=== PATIENT | male | born 1970 | race Caucasian/White ===

== ENCOUNTER 2017-08-23 06:26 | Day surgery (SDC) | payer OTHER ==
[2017-08-23] MEDS ORDERED: Povidone-Iodine 10% Soln 118.25 ML Bottle ONE (06:43)
[2017-08-23] MEDS ORDERED: Bupivacaine 0.5%/EPINEPHrine 1:200,000 50 ML MDV ONE (06:43)
[2017-08-23] MEDS ORDERED: Lactated Ringers 1,000 ML IV SCH (07:00)
[2017-08-23] MEDS ORDERED: fentaNYL 250 MCG/5 ML SDV ONE (07:03)
[2017-08-23] MEDS ORDERED: Ondansetron 4 MG/2 ML SDV ONE (07:03)
[2017-08-23] MEDS ORDERED: Succinylcholine/Normal Saline 200 MG/10 ML Syringe ONE (07:03)
[2017-08-23] MEDS ORDERED: Propofol 200 MG/20 ML SDV ONE (07:03)
[2017-08-23] MEDS ORDERED: Rocuronium 50 MG/5 ML Vial ONE (07:03)
[2017-08-23] MEDS ORDERED: Dexamethasone 4 MG/ML SDV ONE (07:03)
[2017-08-23] MEDS ORDERED: Neostigmine Methylsulfate 1 MG/ML 5 ML Syringe ONE (07:03)
[2017-08-23] MEDS ORDERED: Gentamicin 40 MG/ML 2 ML Vial ONE (07:19)
[2017-08-23] MEDS ORDERED: ceFAZolin 2 GM in Premix Bag 1 BAG IV ONE (07:45)
[2017-08-23] MEDS ORDERED: Acetaminophen/HYDROcodone 325-5 MG Tab PO PRN (09:07)
[2017-08-23 09:27] VITALS: BP 96/58
--- NOTE | 2017-08-23 15:44 | OR ---
DATE OF PROCEDURE: 08/23/2017 PREOPERATIVE DIAGNOSIS: Left knee medial meniscus tear. POSTOPERATIVE DIAGNOSES: 1. Left knee medial anteroposterior meniscus tear. 2. Lateral meniscus tear posteriorly. 3. Chondromalacia of patella. PROCEDURES: 1. Patellar chondroplasty. 2. Partial mediolateral meniscectomy. TALENT DEVELOPMENT SPECIALIST: Anjana Mera NP. Physician regional administrative assistant, Anjana Mera NP, played an essential role in assisting in this case, helping to position the patient, retract structures as needed, as well as suturing and cutting sutures as indicated. Her presence improved patient's safety and decreased operative time. ANESTHESIA: General endotracheal intubation. FLUID: Lactated Ringer solution. ESTIMATED BLOOD LOSS: 0. COMPLICATIONS: None. SPECIMEN: None. DISCHARGE DISPOSITION: Stable to PACU. INDICATIONS FOR THE PROCEDURE: The patient was seen preoperatively in the clinic. He had been suffering with left knee mechanical instability and pain since last March. He had failed cortisone injections and nonoperative treatment. Preoperative imaging confirmed the preoperative diagnosis. Risks and benefits of procedure were explained to the patient. Informed consent was obtained. DETAILS OF PROCEDURE: The patient was seen preoperatively by myself and the anesthesia staff in the preop holding area where the operative site was marked. He was brought to the operative suite by the anesthesia staff where general anesthesia was administered. A well- padded tourniquet was placed on the left thigh. The right lower extremity was placed into a stirrup and the left lower extremity was placed into a leg archibald. The left lower extremity was then prepped and draped in a sterile manner. Time-out was called identifying the correct patient, correct procedure, correct site, and antibiotics had been in with an appropriate period of time. The left lower extremity was exsanguinated. Tourniquet was raised to 250 mmHg for 30 minutes and let down after closure. A lateral portal was then made 1st. I found chondromalacia of the patella. I then made my medial portal. I was able to see that there was anterior partial meniscus tear as well as a posterior meniscus tear. I then used the shaver and ablation unit to debride the meniscus tear. I then removed part of the infrapatellar fat pad for visualization and then saw that there was tear of the posterolateral meniscus which we did again, debrided with the shaver and ablation unit and I had used the ablation unit then to perform a chondroplasty of the patella. I then removed my instruments from the knee. We then closed with 3-0 nylon followed by sterile dressing. The patient was then transferred to his hospital bed and brought to the PACU in stable condition. Jose Miguel aRpp DO /[id number]
== END 2017-08-23 10:15 | disposition home or self-care (01) ==
LOC: JP.SDS 06:26
PROVIDERS: ATTEND Orthopaedic Surgery
DX: S83.242A Other tear of medial meniscus, current injury, left knee, initial encounter (principal); S83.282A Other tear of lateral meniscus, current injury, left knee, initial encounter; M22.41 Chondromalacia patellae, right knee; K21.9 Gastro-esophageal reflux disease without esophagitis; G89.29 Other chronic pain; F17.210 Nicotine dependence, cigarettes, uncomplicated; Z98.890 Other specified postprocedural states; Z79.899 Other long term (current) drug therapy
CPT/HCPCS: 29880; A9270; J0690; J1100; J1580; J2405; J2704; J3010; J7120

== ENCOUNTER 2018-09-19 07:23 | Day surgery (SDC) | payer OTHER ==
[~2018-09-19 07:23] MED LIST: Midazolam 1 MG/ML 2 ML SDV ONE; Propofol 200 MG/20 ML SDV ONE; fentaNYL 100 MCG/2 ML SDV ONE
[2018-09-19] MEDS ORDERED: Sodium Chloride 0.9% 1,000 ML IV SCH (08:00)
[2018-09-19] MEDS ORDERED: Lactated Ringers 1,000 ML IV SCH (08:30)
[2018-09-19] MEDS ORDERED: Propofol 200 MG/20 ML SDV ONE (09:08)
[2018-09-19 10:02] VITALS: BP 102/72
--- NOTE | 2018-09-20 11:13 | OR ---
DATE OF PROCEDURE: 09/19/2018 PREOPERATIVE DIAGNOSIS: Colon cancer screening. POSTOPERATIVE DIAGNOSIS: Sigmoid colitis, possible transverse colon polyp. PROCEDURE: Colonoscopy to the cecum with biopsy of sigmoid colon and biopsy resection of possible transverse colon polyp. ANESTHESIA: IV anesthesia with monitored anesthesia care. SURGEON: Peter Borrego MD INDICATION: This 48-year-old white male was referred for a colonoscopy for colon cancer screening. He has had a colonoscopic exam in the past, but he says more than 10 years ago. I counseled him for the procedure, including risks and alternatives, and he gave his informed consent to proceed. DESCRIPTION OF PROCEDURE: The patient was placed in the left lateral decubitus position. IV anesthesia was administered by the Anesthesia Service. Time-out was held. A rectal exam was performed, which was unremarkable. The flexible video Olympus colonoscope was introduced through his anus, up his rectum, and out his colon all the way to the cecum. En route, in the sigmoid colon, we saw an area of inflammation suggestive of colitis. We biopsied this area. Also, en route in the transverse colon, we saw what may have been a very small polyp. We removed this with a single bite of the biopsy forceps. Once the cecum was reached, the scope was slowly withdrawn examining the mucosa throughout. No additional mucosal abnormalities were noted. The scope was retroflexed in the rectum with the distal rectum appearing unremarkable. The scope was straightened and removed. He tolerated the procedure well. Peter Borrego MD /[id number]
== END 2018-09-19 10:18 | disposition home or self-care (01) ==
LOC: JP.SDS 07:23
PROVIDERS: ATTEND Surgery
DX: Z12.11 Encounter for screening for malignant neoplasm of colon (principal); D12.3 Benign neoplasm of transverse colon; K52.9 Noninfective gastroenteritis and colitis, unspecified
CPT/HCPCS: 45380; J2250; J2704; J3010; J7120

== ENCOUNTER 2018-12-01 10:44 | Emergency (ER) | payer OTHER ==
[2018-12-01] MEDS ORDERED: Nitroglycerin 0.4 MG Tab.SL SL PRN (10:54)
[2018-12-01] MEDS ORDERED: Sodium Chloride 0.9% 10 ML Syringe FLUSH PRN (10:54)
[2018-12-01] MEDS ORDERED: Morphine 4 MG/ML Syringe IVPUSH PRN (10:54)
[2018-12-01] MEDS ORDERED: Aspirin 81 MG Tab.Chew PO ONE (10:54)
[2018-12-01] MEDS ORDERED: Ondansetron 4 MG/2 ML SDV IVPUSH ONE (10:58)
--- NOTE | 2018-12-01 10:59 | EDM.PDOC ---
ED HPI GENERAL MEDICAL PROBLEM - General Chief Complaint: Chest Pain Stated Complaint: CHEST PAIN Time Seen by Provider: 12/01/18 10:54 Source of Information: Reports: Patient, RN Notes Reviewed History Limitations: Reports: No Limitations - History of Present Illness INITIAL COMMENTS - FREE TEXT/NARRATIVE: 48-year-old gentleman presents emergency department today complaint of chest pain, he states the chest pain started about 2 hours prior was diaphoretic was nauseated and felt short of breath rates the pain 2 out of 10 at this time doesn 't past medical history of tobacco dependence and hypertension there is no cardiac history in his family chest Pain Score (Numeric/FACES): 2 - Related Data Allergies Allergy/AdvReac Type Severity Reaction Status Date / Time nitroglycerin Allergy Other Verified 12/01/18 10:58 Home Meds: Home Meds Omeprazole 20 mg PO DAILY 01/29/16 [History] Lisinopril 20 mg PO DAILY 09/19/18 [History] Past Medical History Cardiovascular History: Reports: High Cholesterol, Hypertension Gastrointestinal History: Reports: GERD Musculoskeletal History: Reports: Other (See Below) Other Musculoskeletal History: left knee pain Neurological History: Reports: Concussion Endocrine/Metabolic History: Reports: Obesity/BMI 30+ Dermatologic History: Reports: Psoriasis - Infectious Disease History Infectious Disease History: Reports: Chicken Pox, Measles - Past Surgical History Head Surgeries/Procedures: Reports: None Cardiovascular Surgical History: Reports: None GI Surgical History: Reports: Colonoscopy, EGD Endocrine Surgical History: Reports: None Neurological Surgical History: Reports: None Musculoskeletal Surgical History: Reports: Arthroscopic Knee Dermatological Surgical History: Reports: Skin Biopsy Social & Family History - Family History Family Medical History: Noncontributory - Tobacco Use Smoking Status *Q: Current Every Day Smoker - Caffeine Use Caffeine Use: Reports: Coffee ED ROS GENERAL - Review of Systems Review Of Systems: See Below Constitutional: Reports: Diaphoresis HEENT: Reports: No Symptoms Respiratory: Reports: Shortness of Breath Cardiovascular: Reports: Chest Pain, Dyspnea on Exertion GI/Abdominal: Reports: Nausea Musculoskeletal: Reports: No Symptoms Skin: Reports: No Symptoms Neurological: Reports: No Symptoms ED EXAM, GENERAL - Physical Exam Exam: See Below Exam Limited By: No Limitations General Appearance: Alert, Mild Distress Head: Atraumatic, Normocephalic Neck: Normal Inspection, Supple, Non-Tender, Full Range of Motion Respiratory/Chest: No Respiratory Distress, Lungs Clear, Normal Breath Sounds, No Accessory Muscle Use, Chest Non-Tender Cardiovascular: Regular Rate, Rhythm, No Murmur GI/Abdominal: Soft, Non-Tender Skin Exam: Rash Course - Vital Signs Last Recorded V/S: Last Vital Signs Temp 98.3 F 12/01/18 10:56 Pulse 62 12/01/18 11:46 Resp 16 12/01/18 11:46 BP 132/85 12/01/18 11:46 Pulse Ox 95 12/01/18 11:46 - Orders/Labs/Meds Orders: Active Orders 24 hr Category Date Time Status Cardiac Monitoring [RC] .As Directed Care 12/01/18 10:55 Active Communication Order [RC] Per Unit Routine Care 12/01/18 13:33 Ordered EKG Documentation Completion [RC] ASDIRECTED Care 12/01/18 10:56 Active Peripheral IV Care [RC] . DIRECTED Care 12/01/18 10:56 Active Heparin Sodium/D5W [Heparin 25,000 Units in D5W 500 ML] Med 12/01/18 13:45 Ordered 25,000 units in 500 ml IV TITRATE Morphine Med 12/01/18 10:54 Active 4 mg IVPUSH Q10M PRN Nitroglycerin [Nitrostat] Med 12/01/18 10:54 Active 0.4 mg SL Q5M PRN Nitroglycerin/D5W [Nitroglycerin 25 MG/D5W 250 ML] Med 12/01/18 12:15 Active 25 mg in 250 ml IV TITRATE Sodium Chloride 0.9% [Saline Flush] Med 12/01/18 10:54 Active 10 ml FLUSH ASDIRECTED PRN Peripheral IV Insertion Adult [OM.PC] Stat Oth 12/01/18 10:54 Ordered Saline Lock Insert [OM.PC] Stat Oth 12/01/18 10:54 Ordered EKG 12 Lead [EK] Stat Ther 12/01/18 10:55 Ordered Medication Orders Nitroglycerin/Dextrose (Nitroglycerin 25 Mg/D5w 250 Ml) 25 mg in 250 mls @ 6 mls/hr IV TITRATE RAJAN; Protocol Last Admin: 12/01/18 12:18 Dose: 10 mcg/min, 6 mls/hr Heparin Sodium/Dextrose (Heparin 25,000 Units In D5w 500 Ml) 25,000 units in 500 mls @ 21.772 mls/hr IV TITRATE RAJAN; Protocol Last Admin: 12/01/18 13:51 Dose: 12 units/kg/hr, 21.772 mls/hr Morphine Sulfate (Morphine) 4 mg IVPUSH Q10M PRN PRN Reason: Chest Pain Stop: 12/02/18 10:55 Last Admin: 12/01/18 11:04 Dose: 4 mg Nitroglycerin (Nitrostat) 0.4 mg SL Q5M PRN PRN Reason: Chest Pain Stop: 12/02/18 10:55 Sodium Chloride (Saline Flush) 10 ml FLUSH ASDIRECTED PRN PRN Reason: Keep Vein Open Labs: Laboratory Tests 12/01/18 12/01/18 12/01/18 Range/Units 10:59 10:59 13:00 WBC 10.0 (4.5-11.0) K/uL RBC 4.81 (4.30-5.90) M/uL Hgb 15.2 H (12.0-15.0) g/dL Hct 43.9 (40.0-54.0) % MCV 91 (80-98) fL MCH 32 H (27-31) pg MCHC 35 (32-36) % Plt Count 238 (150-400) K/uL Neut % (Auto) 48 (36-66) % Lymph % (Auto) 36 (24-44) % Delta % (Auto) 12 H (2-6) % Eos % (Auto) 2 (2-4) % Baso % (Auto) 1 (0-1) % Sodium 139 L (140-148) mmol/L Potassium 4.5 (3.6-5.2) mmol/L Chloride 103 (100-108) mmol/L Carbon Dioxide 28 (21-32) mmol/L Anion Gap 12.5 (5.0-14.0) mmol/L BUN 13 (7-18) mg/dL Creatinine 1.0 (0.8-1.3) mg/dL Est Cr Clr Drug Dosing 85.50 mL/min Estimated GFR (MDRD) > 60 (>60) Glucose 134 H (74-106) mg/dL Calcium 9.0 (8.5-10.1) mg/dL Total Bilirubin 0.3 (0.2-1.0) mg/dL AST 18 (15-37) U/L ALT 29 (12-78) U/L Alkaline Phosphatase 70 (46-116) U/L CK-MB (CK-2) 2.2 (0-3.6) mg/mL Troponin I 0.032 0.238 H* (0.000-0.056) ng/mL Total Protein 6.8 (6.4-8.2) g/dL Albumin 3.8 (3.4-5.0) g/dL Globulin 3.0 (2.3-3.5) g/dL Albumin/Globulin Ratio 1.3 (1.2-2.2) Meds: Medications Generic Name Dose Route Start Last Admin Trade Name Freq PRN Reason Stop Dose Admin Nitroglycerin/Dextrose 25 mg in 250 mls @ 6 mls/hr 12/01/18 12:15 12/01/18 12 :18 Nitroglycerin 25 Mg/D5w 250 Ml IV 10 mcg/min TITRATE RAJAN 6 mls/hr Administration Protocol 10 MCG/MIN Heparin Sodium/Dextrose 25,000 units in 500 mls @ 21.772 mls/hr 12/01/18 13: 45 12/01/18 13:51 Heparin 25,000 Units In D5w 500 Ml IV 12 units/kg/hr TITRATE RAJAN 21.772 mls/hr Administration Protocol 12 UNITS/KG/HR Morphine Sulfate 4 mg 12/01/18 10:54 12/01/18 11:04 Morphine IVPUSH 12/02/18 10:55 4 mg Q10M PRN Administration Chest Pain Nitroglycerin 0.4 mg 12/01/18 10:54 Nitrostat SL 12/02/18 10:55 Q5M PRN Chest Pain Sodium Chloride 10 ml 12/01/18 10:54 Saline Flush FLUSH ASDIRECTED PRN Keep Vein Open Discontinued Medications Generic Name Dose Route Start Last Admin Trade Name Freq PRN Reason Stop Dose Admin Aspirin 324 mg 12/01/18 10:54 12/01/18 11:04 Aspirin PO 12/01/18 10:55 324 mg ONETIME ONE Administration Clopidogrel Bisulfate 300 mg 12/01/18 13:33 12/01/18 13:50 Plavix PO 12/01/18 13:34 300 mg ONETIME ONE Administration Heparin Sodium (Porcine) 4,000 units 12/01/18 13:33 12/01/18 13:51 Heparin Sodium IVPUSH 12/01/18 13:34 4,000 units ONETIME ONE Administration Ondansetron HCl 4 mg 12/01/18 10:58 12/01/18 11:04 Zofran IVPUSH 12/01/18 10:59 4 mg ONETIME ONE Administration - Re-Assessments/Exams Free Text/Narrative Re-Assessment/Exam: Heart score of 3 12/01/18 12:04 Reports Departure - Departure Time of Disposition: 13:54 Disposition: DC/Tfer to Acute Hospital 02 Reason for Transfer *Q: Primary PCI Indicated Condition: Fair Clinical Impression: Non-ST elevated myocardial infarction Referrals: PCP,None [Primary Care Provider] - Forms: ED Department Discharge - My Orders Last 24 Hours: My Active Orders 12/01/18 10:54 Morphine 4 mg IVPUSH Q10M PRN Nitroglycerin [Nitrostat] 0.4 mg SL Q5M PRN Sodium Chloride 0.9% [Saline Flush] 10 ml FLUSH ASDIRECTED PRN Peripheral IV Insertion Adult [OM.PC] Stat Saline Lock Insert [OM.PC] Stat 12/01/18 10:55 Cardiac Monitoring [RC] .As Directed EKG 12 Lead [EK] Stat 12/01/18 10:56 EKG Documentation Completion [RC] ASDIRECTED Peripheral IV Care [RC] . DIRECTED 12/01/18 12:15 Nitroglycerin/D5W [Nitroglycerin 25 MG/D5W 250 ML] 25 mg in 250 ml IV TITRATE 12/01/18 13:33 Communication Order [RC] Per Unit Routine 12/01/18 13:45 Heparin Sodium/D5W [Heparin 25,000 Units in D5W 500 ML] 25,000 units in 500 ml IV TITRATE - Assessment/Plan Last 24 Hours: My Active Orders 12/01/18 10:54 Morphine 4 mg IVPUSH Q10M PRN Nitroglycerin [Nitrostat] 0.4 mg SL Q5M PRN Sodium Chloride 0.9% [Saline Flush] 10 ml FLUSH ASDIRECTED PRN Peripheral IV Insertion Adult [OM.PC] Stat Saline Lock Insert [OM.PC] Stat 12/01/18 10:55 Cardiac Monitoring [RC] .As Directed EKG 12 Lead [EK] Stat 12/01/18 10:56 EKG Documentation Completion [RC] ASDIRECTED Peripheral IV Care [RC] . DIRECTED 12/01/18 12:15 Nitroglycerin/D5W [Nitroglycerin 25 MG/D5W 250 ML] 25 mg in 250 ml IV TITRATE 12/01/18 13:33 Communication Order [RC] Per Unit Routine 12/01/18 13:45 Heparin Sodium/D5W [Heparin 25,000 Units in D5W 500 ML] 25,000 units in 500 ml IV TITRATE Plan: Assessment Acuity = acute Site and laterality = non-ST elevation myocardial infarction Etiology = probable underlying coronary artery disease Manifestations = chest pain now resolved Location of injury = Home Lab values = CBC, CMP unremarkable initial troponin in the normal range 0.032 second troponin 2 hours later 0.258 elevation EKG demonstrates no signs ischemia no ST elevations or depressions, chest x-ray unremarkable per radiology Plan Called discussed case with Dr. Santos hospitalist that [facility] admitting at 1340 kindly accepted the patient in transport will be transported via EMS ground, has received aspirin, 300 mg Plavix 4000 unit heparin bolus followed by heparin drip in route. This note was dictated using bulletn. voice recognition software please call with any questions on syntax or grammar.
[2018-12-01 12:13] VITALS: BP 132/85
[2018-12-01] MEDS ORDERED: Nitroglycerin/D5W 25 MG/250 ML BOTTLE IV SCH (12:15)
[2018-12-01] MEDS ORDERED: Heparin Sodium 5,000 Units/ML Vial IVPUSH ONE (13:33)
[2018-12-01] MEDS ORDERED: Clopidogrel 75 MG Tab PO ONE (13:33)
--- NOTE | 2018-12-01 13:41 | CRLCR ---
Chest pain portable chest. COMPARISON: X-rays 08/17/2017. Findings: Normal cardiac mediastinal silhouette. Lungs are clear. Right basilar granuloma. No pneumothorax. Impression: 1. No acute pulmonary process. Dictated by Janice Bergeron MD @ Dec 01 2018 1:37PM Signed by Dr. Janice Bergeron @ Dec 01 2018 1:38PM
[2018-12-01] MEDS ORDERED: Heparin Sodium/D5W 25,000 UNITS/500 ML BAG IV SCH (13:45)
== END 2018-12-01 14:24 ==
LOC: JP.ED 10:44
DX: I21.4 Non-ST elevation (NSTEMI) myocardial infarction (principal); F17.200 Nicotine dependence, unspecified, uncomplicated; I10 Essential (primary) hypertension; E78.00 Pure hypercholesterolemia, unspecified; K21.9 Gastro-esophageal reflux disease without esophagitis; Z88.8 Allergy status to other drugs, medicaments and biological substances; Z79.899 Other long term (current) drug therapy
CPT/HCPCS: 36415; 71045; 80053; 82553; 84484; 85025; 93005; 96365; 96366; 96375; 99285; A9270; J1644; J2270; J2405; J3490